=== PATIENT | female | born 1960 | race Caucasian/White ===

== ENCOUNTER 2017-12-25 16:28 | Emergency (ER) | payer MEDICAID ==
[~2017-12-25] VITALS: Ht 162.6 cm; Wt 77.0 kg
[~2017-12-25 16:28] MED LIST: ALBUAER3 INH; ATOR80TA45 PO; DOXY1TAB6 PO; GLIP10TA6 PO; HYDR50TA94 PO; IMIT50TA PO; LEXA10TA PO; LOSA50TA PO; LYRI75CA PO; METF1000 PO; NABU1TAB37 PO; PANT40TA3 PO; PROBCAP3 PO; Test Strips SQ
[2017-12-25 16:38] VITALS: BP 140/91; PULSE 87; RESP 18; TEMP 97.9; O2SAT 100
[2017-12-25 16:55] VITALS: BP 118/76; PULSE 91; RESP 19; O2SAT 98
[2017-12-25 16:56] VITALS: RESP 18; O2SAT 98
--- NOTE | 2017-12-25 17:10 | PD ---
HPI Chief Complaint: Respiratory Symptoms Time Seen by Provider: 17:09 Travel History International Travel<30 days: No Contact w/Intl Traveler<30days: No Traveled to known affect area: No History of Present Illness HPI 57-year-old female with history of COPD, diabetes, hypertension presents emergency department for evaluation of a right flank pain. This is been going on for several months but worse over the last couple of days. She states she feels like she cannot take a deep breath without exacerbating the pain. Is a constant ache, moderate in severity. It is intermittently sharp, mostly with inspiration. She denies any hemoptysis. She denies any history of PE or DVT. She has no known history of renal calculi. She has had no urinary symptoms. She has had no fever or chills. She has no other symptoms to report at this time. PFSH Past Medical History Hx Anticoagulant Therapy: No Arthritis: Yes Asthma: Yes Blood Disorders: No Anxiety: Yes Heart Rhythm Problems: No Cancer: Yes (OVARIAN CANCER WITH CHEMO.) Cardiac Catheterization: No Cardiovascular Problems: Yes High Cholesterol: Yes Chemotherapy: Yes (OVARIAN CANCER) Chest Pain: Yes Congestive Heart Failure: No Cerebrovascular Accident: No Diabetes: Yes Patient Takes Glucophage: Yes Diminished Hearing: No Endocrine: No Fibromyalgia: Yes GERD: Yes Genitourinary: No Headaches: Yes Hepatitis: Yes (C) Hypertension: Yes Immune Disorder: No Kidney Stones: No Musculoskeletal: Yes (CHRONIC RIGHT HIP PAIN) Respiratory: No Myocardial Infarction: No Ulcer: No PNEUMOCCOCAL Vaccine (Year): 1 ?: Not Menopausal: No : 5 Para: 1 Miscarriage: 4 Past Surgical History Abdominal Surgery: Yes (OVARIAN TUMOR 2007) AICD: No Arteriovenous Shunt: No Coronary Artery Bypass Graft: No Hysterectomy: Yes Insulin Pump: No Joint Replacement: No Pacemaker: No Other Surgery: Yes (LIVER BIOP.1998 , VAD LEFT CHEST INSERTED AND REMOVED.) Family History Family Myocardial Infarction: Yes Social History Alcohol Use: No (RECOVERING ALCOHOLIC,quit 25 yrs) Tobacco Use: Yes (1PPD) Substance Use: Yes (HX ETOH ABUSE/DRUG ADDICTION) Allergies-Medications (Allergen,Severity, Reaction): Coded Allergies: No Known Allergies (Verified , 06/29/17) Reported Meds & Prescriptions Reported Meds & Active Scripts Active Ibuprofen 600 Mg Tab 600 Mg PO Q8H PRN Robaxin (Methocarbamol) 500 Mg Tab 500 Mg PO QID PRN Nabumetone 500 Mg Tab 500 Mg PO BID Lyrica (Pregabalin) 75 Mg Cap 75 Mg PO TID Pantoprazole (Pantoprazole Sodium) 40 Mg Tab 40 Mg PO DAILY Glipizide 10 Mg Tab 5 Mg PO DAILY Take 30 minutes before a meal Proair Hfa 8.5 GM Inh (Albuterol Sulfate) 90 Mcg/Act Aer 2 Puff INH Q4-6H PRN 108 mcg/actuation Reported Metformin (Metformin HCl) 1,000 Mg Tab 1,000 Mg PO AC DINNER With a meal Hydroxyzine HCl 50 Mg Tab 50 Mg PO HS Lexapro (Escitalopram Oxalate) 10 Mg Tab 10 Mg PO DAILY Losartan (Losartan Potassium) 50 Mg Tab 50 Mg PO DAILY Imitrex (Sumatriptan Succinate) 50 Mg Tab 50 Mg PO ONCE PRN If a satisfactory response has not been obtained at 2 hours, a second dose may be administered Review of Systems Except as stated in HPI: all other systems reviewed are Neg Physical Exam Narrative GENERAL: Well-nourished female patient, lying in bed, appears in no acute distress. SKIN: Focused skin assessment warm/dry. HEAD: Atraumatic. Normocephalic. EYES: Pupils equal and round. No scleral icterus. No injection or drainage. ENT: No nasal bleeding or discharge. Mucous membranes pink and moist. NECK: Trachea midline. No JVD. CARDIOVASCULAR: Regular rate and rhythm. No murmur appreciated. RESPIRATORY: No accessory muscle use. Diminished with faint expiratory wheeze to auscultation. Breath sounds equal bilaterally. Even respirations GASTROINTESTINAL: Abdomen soft, non-tender, nondistended. No guarding. No rebound tenderness. There is right CVA tenderness. Hepatic and splenic margins not palpable. MUSCULOSKELETAL: No obvious deformities. No clubbing. No cyanosis. No edema. NEUROLOGICAL: Awake and alert. No obvious cranial nerve deficits. Motor grossly within normal limits. Normal speech. PSYCHIATRIC: Appropriate mood and affect; insight and judgment normal. Data Data Last Documented VS Vital Signs Date Time Temp Pulse Resp B/P (MAP) Pulse Ox O2 Delivery O2 Flow Rate FiO2 12/25/17 16:56 18 98 Room Air 12/25/17 16:55 91 12/25/17 16:38 97.9 Orders Orders Complete Blood Count With Diff (6/24/18 16:45) Basic Metabolic Panel (Bmp) (12/25/17 16:45) Chest, Pa & Lat (12/25/17 16:45) Iv Access Insert/Monitor (12/25/17 16:45) Ecg Monitoring (12/25/17 16:45) Oxygen Administration (12/25/17 16:45) Oximetry (12/25/17 16:45) Electrocardiogram (12/25/17 16:45) Ckmb (Isoenzyme) Profile (12/25/17 17:09) Prothrombin Time / Inr (Pt) (12/25/17 17:09) Act Partial Throm Time (Ptt) (12/25/17 17:09) Troponin I (12/25/17 17:09) Lipase (12/25/17 17:09) Albuterol-Ipratropium Neb (Duoneb Neb) (12/25/17 17:15) Urinalysis - C+S If Indicated (12/25/17 18:41) Ct Abd/Pel W/O Iv Contrast (12/25/17 ) Ed Discharge Order (12/25/17 20:20) Labs Laboratory Tests Test 12/25/17 17:04 12/25/17 17:27 12/25/17 19:15 White Blood Count 8.8 TH/MM3 Red Blood Count 5.11 MIL/MM3 Hemoglobin 15.5 GM/DL Hematocrit 45.7 % Mean Corpuscular Volume 89.4 FL Mean Corpuscular Hemoglobin 30.4 PG Mean Corpuscular Hemoglobin Concent 34.0 % Red Cell Distribution Width 13.5 % Platelet Count 226 TH/MM3 Mean Platelet Volume 7.5 FL Neutrophils (%) (Auto) 49.1 % Lymphocytes (%) (Auto) 43.2 % Monocytes (%) (Auto) 6.3 % Eosinophils (%) (Auto) 0.8 % Basophils (%) (Auto) 0.6 % Neutrophils # (Auto) 4.3 TH/MM3 Lymphocytes # (Auto) 3.8 TH/MM3 Monocytes # (Auto) 0.6 TH/MM3 Eosinophils # (Auto) 0.1 TH/MM3 Basophils # (Auto) 0.1 TH/MM3 CBC Comment DIFF FINAL Differential Comment Blood Urea Nitrogen 16 MG/DL Creatinine 0.89 MG/DL Random Glucose 185 MG/DL Calcium Level 9.2 MG/DL Sodium Level 136 MEQ/L Potassium Level 4.1 MEQ/L Chloride Level 100 MEQ/L Carbon Dioxide Level 28.1 MEQ/L Anion Gap 8 MEQ/L Estimat Glomerular Filtration Rate 65 ML/MIN Total Creatine Kinase 74 U/L Troponin I LESS THAN 0.02 NG/ML Lipase 46 U/L Prothrombin Time 10.4 SEC Prothromb Time International Ratio 1.0 RATIO Activated Partial Thromboplast Time 25.9 SEC Urine Color YELLOW Urine Turbidity HAZY Urine pH 6.0 Urine Specific [place] 1.012 Urine Protein NEG mg/dL Urine Glucose (UA) 50 mg/dL Urine Ketones NEG mg/dL Urine Occult Blood NEG Urine Nitrite NEG Urine Bilirubin NEG Urine Urobilinogen LESS THAN 2 mg/dL Urine Leukocyte Esterase NEG Urine RBC 2 /hpf Urine WBC LESS THAN 1 /hpf Urine Squamous Epithelial Cells 2 /hpf Urine Hyaline Casts 1 /lpf Urine Mucus FEW /lpf Microscopic Urinalysis Comment CULT NOT INDICATED MDM Medical Decision Making Medical Screen Exam Complete: Yes Emergency Medical Condition: Yes Medical Record Reviewed: Yes Differential Diagnosis Renal calculi versus pyelonephritis versus pneumonia versus muscle strain Narrative Course 57-year-old female presents emergency department for evaluation of right flank pain. Patient appears well. Her vital signs are stable. She does have right CVA tenderness. He does have diminished breath sounds with a faint expiratory wheeze. She is given DuoNeb treatment for this. Laboratory Tests Test 12/25/17 17:04 12/25/17 17:27 12/25/17 19:15 White Blood Count 8.8 TH/MM3 Red Blood Count 5.11 MIL/MM3 Hemoglobin 15.5 GM/DL Hematocrit 45.7 % Mean Corpuscular Volume 89.4 FL Mean Corpuscular Hemoglobin 30.4 PG Mean Corpuscular Hemoglobin Concent 34.0 % Red Cell Distribution Width 13.5 % Platelet Count 226 TH/MM3 Mean Platelet Volume 7.5 FL Neutrophils (%) (Auto) 49.1 % Lymphocytes (%) (Auto) 43.2 % Monocytes (%) (Auto) 6.3 % Eosinophils (%) (Auto) 0.8 % Basophils (%) (Auto) 0.6 % Neutrophils # (Auto) 4.3 TH/MM3 Lymphocytes # (Auto) 3.8 TH/MM3 Monocytes # (Auto) 0.6 TH/MM3 Eosinophils # (Auto) 0.1 TH/MM3 Basophils # (Auto) 0.1 TH/MM3 CBC Comment DIFF FINAL Differential Comment Blood Urea Nitrogen 16 MG/DL Creatinine 0.89 MG/DL Random Glucose 185 MG/DL Calcium Level 9.2 MG/DL Sodium Level 136 MEQ/L Potassium Level 4.1 MEQ/L Chloride Level 100 MEQ/L Carbon Dioxide Level 28.1 MEQ/L Anion Gap 8 MEQ/L Estimat Glomerular Filtration Rate 65 ML/MIN Total Creatine Kinase 74 U/L Troponin I LESS THAN 0.02 NG/ML Lipase 46 U/L Prothrombin Time 10.4 SEC Prothromb Time International Ratio 1.0 RATIO Activated Partial Thromboplast Time 25.9 SEC Urine Color YELLOW Urine Turbidity HAZY Urine pH 6.0 Urine Specific [place] 1.012 Urine Protein NEG mg/dL Urine Glucose (UA) 50 mg/dL Urine Ketones NEG mg/dL Urine Occult Blood NEG Urine Nitrite NEG Urine Bilirubin NEG Urine Urobilinogen LESS THAN 2 mg/dL Urine Leukocyte Esterase NEG Urine RBC 2 /hpf Urine WBC LESS THAN 1 /hpf Urine Squamous Epithelial Cells 2 /hpf Urine Hyaline Casts 1 /lpf Urine Mucus FEW /lpf Microscopic Urinalysis Comment CULT NOT INDICATED Last Impressions Chest X-Ray 12/25/17 1645 Signed Impressions: CONCLUSION: Negative examination. Abdomen/Pelvis CT 12/25/17 0000 Signed Impressions: CONCLUSION: : 1. No renal calculi or obstructive uropathy. 2. Previous cholecystectomy. Stable small adrenal adenomas. Colonic diverticul osis without diverticulitis. I discussed the patient my attending physician who is also assessed the patient reviewed the findings. Patient be discharged home to follow-up with primary care provider. She agrees to return immediately with acute worsening symptoms. Diagnosis Primary Impression: Flank pain Additional Impression: Inspiratory pain Referrals: Primary Care Physician Patient Instructions: Flank Pain (ED), General Instructions Additional Instructions: Maintain adequate oral hydration Return to ED with acute worsening of symptoms Med/Other Pt SpecificInfo: Prescription(s) given, No Change to Meds Scripts Ibuprofen (Ibuprofen) 600 Mg Tab 600 MG PO Q8H Y for PAIN, #30 TAB 0 Refills Prov: Yohana Pastrana 12/25/17 Methocarbamol (Robaxin) 500 Mg Tab 500 MG PO QID Y for MUSCLE SPASM, #20 TAB 0 Refills Prov: Yohana Pastrana 12/25/17 Disposition: 01 DISCHARGE HOME Condition: Stable Yohana Pastrana Dec 25, 2017 17:10
[2017-12-25] MEDS ORDERED: RESP: ALBUTEROL 2.5 MG/IPRATROPIUM 0.5 MG NEB (SCH) NEB ONE (17:15)
[2017-12-25 17:22] LABS: AUTOMATED NEUTROPHIL # 4.3 TH/MM3 (1.8-7.7); BASOPHIL # 0.1 TH/MM3 (0-0.2); BASOPHIL % 0.6 % (0.0-2.0); EOSINOPHIL # 0.1 TH/MM3 (0-0.4); EOSINOPHIL % 0.8 % (0.0-4.0); HEMATOCRIT 45.7 % (35.0-46.0); HEMOGLOBIN 15.5 GM/DL (11.6-15.3); LYMPH % 43.2 % (9.0-44.0); LYMPHOCYTE # 3.8 TH/MM3 (1.0-4.8); MEAN CELL VOLUME 89.4 FL (80.0-100.0); MEAN CORPUSCULAR HEMOGLOBIN 30.4 PG (27.0-34.0); MEAN PLATELET VOLUME 7.5 FL (7.0-11.0); MONO % 6.3 % (0.0-8.0); MONOCYTE # 0.6 TH/MM3 (0-0.9); NEUT % 49.1 % (16.0-70.0); PLATELET COUNT 226 TH/MM3 (150-450); RED BLOOD COUNT 5.11 MIL/MM3 (4.00-5.30); RED CELL DISTRIBUTION WIDTH 13.5 % (11.6-17.2); WHITE BLOOD COUNT 8.8 TH/MM3 (4.0-11.0)
[2017-12-25 17:39] LABS: BICARBONATE 28.1 MEQ/L (21.0-32.0); CALCIUM 9.2 MG/DL (8.5-10.1); CREATININE 0.89 MG/DL (0.50-1.00)
[2017-12-25 17:41] LABS: TROPONIN I LESS THAN 0.02 NG/ML (0.02-0.05)
--- NOTE | 2017-12-25 17:44 | RADRPT ---
EXAM DATE: 12/25/2017 5:24 PM EDT AGE/SEX: 57 years / Female INDICATIONS: Shortness of breath. CLINICAL DATA: This is the patient's initial encounter. Patient reports that signs and symptoms have been present for 1 day and indicates a pain score of 0/10. MEDICAL/SURGICAL HISTORY: Hypertension. Diabetes. Carcinoma, ovarian. . Port for chemotherapy . COMPARISON: No prior exams available for comparison. FINDINGS: PA and lateral views of the chest demonstrate the lungs to be symmetrically aerated without evidence of mass, infiltrate or effusion. The cardiomediastinal contours are unremarkable. Osseous structures are intact. CONCLUSION: Negative examination. Electronically signed by: Andriy Sorenson MD 12/25/2017 5:42 PM EDT
[2017-12-25 17:49] LABS: PROTHROMBIN TIME - PATIENT 10.4 SEC (9.8-11.6)
[2017-12-25 19:51] LABS: BILIRUBIN, URINE NEG (NEG); BLOOD, URINE NEG (NEG); GLUCOSE,URINE 50 mg/dL (NEG); HYALINE CAST, URINE 1 /lpf (RARE); KETONE, URINE NEG (NEG); MUCUS URINE FEW /lpf (OCC); NITRITE,URINE NEG (NEG); SQUAMOUS EPITHELIAL CELL URINE 2 /hpf (0-5); URINE COLOR YELLOW (YELLW/STRAW); URINE LEUKOCYTE ESTERASE NEG (NEG)
--- NOTE | 2017-12-25 19:51 | PD ---
Physical Exam Date Seen by Provider: Dec 25, 2017 Time Seen by Provider: 18:00 Narrative I, Dr. Gold, have reviewed the advance practice practitioner's documentation and am in agreement, met with the patient face to face, made the diagnosis, and the medical decision making was done by me. *My assessment and Findings: Patient seen and evaluated with nurse practitioner , please see her notes for further details. Here with flank pain for several weeks, getting worse, having some shortness of breath, seen previously by primary care doctor and they thought initially was musculoskeletal. On exam, she is tender in the right flank area. Pulmonary exam was fairly unremarkable. Vital signs are stable. CAT scan was ordered for further evaluation. Initial lab work did not show significant cardiac enzymes or chest x-ray findings. Laboratory Tests Test 12/25/17 17:04 12/25/17 17:27 12/25/17 19:15 Hemoglobin 15.5 GM/DL (11.6-15.3) Random Glucose 185 MG/DL (74-106) Estimat Glomerular Filtration Rate 65 ML/MIN (>89) Troponin I LESS THAN 0.02 NG/ML Lipase 46 U/L (73-393) Last 24 hours Impressions Chest X-Ray 12/25/17 1645 Signed Impressions: CONCLUSION: Negative examination. Data Data Last Documented VS Vital Signs Date Time Temp Pulse Resp B/P (MAP) Pulse Ox O2 Delivery O2 Flow Rate FiO2 12/25/17 16:56 18 98 Room Air 12/25/17 16:55 91 12/25/17 16:38 97.9 Orders Orders Complete Blood Count With Diff (12/25/17 16:45) Basic Metabolic Panel (Bmp) (12/25/17 16:45) Chest, Pa & Lat (12/25/17 16:45) Iv Access Insert/Monitor (12/25/17 16:45) Ecg Monitoring (12/25/17 16:45) Oxygen Administration (12/25/17 16:45) Oximetry (12/25/17 16:45) Electrocardiogram (12/25/17 16:45) Ckmb (Isoenzyme) Profile (12/25/17 17:09) Prothrombin Time / Inr (Pt) (12/25/17 17:09) Act Partial Throm Time (Ptt) (12/25/17 17:09) Troponin I (12/25/17 17:09) Lipase (12/25/17 17:09) Albuterol-Ipratropium Neb (Duoneb Neb) (12/25/17 17:15) Urinalysis - C+S If Indicated (12/25/17 18:41) Ct Abd/Pel W/O Iv Contrast (12/25/17 ) Labs Laboratory Tests Test 12/25/17 17:04 12/25/17 17:27 12/25/17 19:15 White Blood Count 8.8 TH/MM3 Red Blood Count 5.11 MIL/MM3 Hemoglobin 15.5 GM/DL Hematocrit 45.7 % Mean Corpuscular Volume 89.4 FL Mean Corpuscular Hemoglobin 30.4 PG Mean Corpuscular Hemoglobin Concent 34.0 % Red Cell Distribution Width 13.5 % Platelet Count 226 TH/MM3 Mean Platelet Volume 7.5 FL Neutrophils (%) (Auto) 49.1 % Lymphocytes (%) (Auto) 43.2 % Monocytes (%) (Auto) 6.3 % Eosinophils (%) (Auto) 0.8 % Basophils (%) (Auto) 0.6 % Neutrophils # (Auto) 4.3 TH/MM3 Lymphocytes # (Auto) 3.8 TH/MM3 Monocytes # (Auto) 0.6 TH/MM3 Eosinophils # (Auto) 0.1 TH/MM3 Basophils # (Auto) 0.1 TH/MM3 CBC Comment DIFF FINAL Differential Comment Blood Urea Nitrogen 16 MG/DL Creatinine 0.89 MG/DL Random Glucose 185 MG/DL Calcium Level 9.2 MG/DL Sodium Level 136 MEQ/L Potassium Level 4.1 MEQ/L Chloride Level 100 MEQ/L Carbon Dioxide Level 28.1 MEQ/L Anion Gap 8 MEQ/L Estimat Glomerular Filtration Rate 65 ML/MIN Total Creatine Kinase 74 U/L Troponin I LESS THAN 0.02 NG/ML Lipase 46 U/L Prothrombin Time 10.4 SEC Prothromb Time International Ratio 1.0 RATIO Activated Partial Thromboplast Time 25.9 SEC [facility] Medical Record Reviewed: Yes Supervised Visit with CHASIDY: Yes Diagnosis Primary Impression: Flank pain Condition: Stable Fabian Gold MD Dec 25, 2017 19:51
--- NOTE | 2017-12-25 20:18 | RADRPT ---
EXAM DATE: 12/25/2017 7:58 PM EDT AGE/SEX: 57 years / Female INDICATIONS: Bilateral flank pain for two weeks. CLINICAL DATA: This is the patient's initial encounter. Patient reports that signs and symptoms have been present for 2 weeks and indicates a pain score of 7/10. MEDICAL/SURGICAL HISTORY: Hepatitis C. Carcinoma, ovarian. Carcinoma, skin cancer. Cholecyste ctomy. Hysterectomy. RADIATION DOSE: 8.50 CTDI (mGy) COMPARISON: [facility] [place] ABDOMEN & [place]ELVIS W/O CONTRAST, 02/23/2015. . TECHNIQUE: Multiple contiguous axial images were obtained through the abdomen. Images were obtained using multiple row detector helical technique. Using automated exposure control and adjustment of the mA and/or kV according to patient size, radiation dose was kept as low as reasonably achievable to o btain optimal diagnostic quality images. DICOM format image data is available electronically for rev iew and comparison. FINDINGS: Lung bases are clear. No acute findings in the liver, spleen, kidneys or pancreas. Small bilateral ad renal adenomas similar to 2015. No renal calculi or obstructive uropathy. No hydronephrosis. There is colonic diverticulosis without evidence for diverticulitis. Gallbladder has been removed. No acute bony abnormalities. CONCLUSION: : 1. No renal calculi or obstructive uropathy. 2. Previous cholecystectomy. Stable small adrenal adenomas. Colonic diverticulosis without diverticu litis. Electronically signed by: Andriy Sorenson MD 12/25/2017 8:17 PM EDT
[2017-12-25] MEDS ORDERED: IBUP-232 PO (20:23)
[2017-12-25] MEDS ORDERED: ROBA500T PO (20:23)
--- NOTE | 2017-12-26 23:18 | EKG ---
Date Performed: 12/25/2017 Time Performed: 16:54:20 PTAGE: 57 years EKG: Sinus rhythm POSSIBLE LEFT ATRIAL ENLARGEMENT BORDERLINE ECG INTERPRETATION BASED ON A DEFAULT AGE OF 40 YEARS PREVIOUS TRACING : 02/26/2015 12.56 Compared to previous tracing, rate has increased DOCTOR: Ferdinand Olsen Interpretating Date/Time 12/26/2017 23:17:39
== END 2017-12-25 20:45 | disposition home or self-care (01) ==
LOC: NEPE 16:28
DX: R10.9 Unspecified abdominal pain (principal); R94.31 Abnormal electrocardiogram [ECG] [EKG]; I10 Essential (primary) hypertension; E11.9 Type 2 diabetes mellitus without complications; J44.9 Chronic obstructive pulmonary disease, unspecified; R06.02 Shortness of breath; M19.90 Unspecified osteoarthritis, unspecified site; F41.9 Anxiety disorder, unspecified; M79.7 Fibromyalgia; K21.9 Gastro-esophageal reflux disease without esophagitis; F17.210 Nicotine dependence, cigarettes, uncomplicated; Z85.43 Personal history of malignant neoplasm of ovary; Z79.84 Long term (current) use of oral hypoglycemic drugs
CPT/HCPCS: 71046; 74176; 80048; 81001; 82550; 83690; 84484; 85025; 85610; 85730; 93005; 94664; 99285